=== PATIENT | female | born 1950 | race Asian ===

== ENCOUNTER 2017-03-09 14:30 | Emergency (ER) | payer MEDICAID ==
[~2017-03-09] VITALS: Ht 152.4 cm; Wt 59.9 kg
[2017-03-09 14:52] VITALS: Ht 152.4 cm; Wt 59.9 kg
[2017-03-09 17:10] VITALS: BP 149/105
== END 2017-03-09 17:30 | disposition home or self-care (01) ==
LOC: ED 14:30
DX: S00.93XA Contusion of unspecified part of head, initial encounter (principal); I10 Essential (primary) hypertension; W01.198A Fall on same level from slipping, tripping and stumbling with subsequent striking against other object, initial encounter; Y93.89 Activity, other specified; Y99.8 Other external cause status; Y92.89 Other specified places as the place of occurrence of the external cause